=== PATIENT | male | born 1965 | race African-American/Black ===

== ENCOUNTER → 2018-04-27 | Outpatient (CLI) | payer OTHER ==
--- NOTE | 2018-04-27 12:04 | RAD ---
Lumbar spine, 3 views, 04/27/2018: HISTORY: Low back pain from old injury, left-sided numbness, right-sided pain The lumbar vertebral heights are well-maintained. The intervertebral disc spaces are well preserved. There are mild scattered marginal spurs. There are mild degenerative changes involving facet joints in the lower lumbar spine. No fracture or dislocation is evident. Moderate aortoiliac calcific plaquing is noted. IMPRESSION: 1. Mild scattered degenerative changes. 2. No acute bony abnormality is detected. Electronically signed by: Garcia Trejo MD (04/27/2018 12:01 PM) [facility]
--- NOTE | 2018-04-27 12:06 | RAD ---
Cervical spine, 3 views, 04/27/2018: HISTORY: Neck pain There are mild spurs at several levels in the mid and lower cervical spine. The vertebral heights and intervertebral disc spaces are well-maintained. No fracture or dislocation is identified. The prevertebral soft tissues are unremarkable. IMPRESSION: 1. Mild marginal spurring. 2. No acute abnormality is detected. Electronically signed by: Garcia Trejo MD (04/27/2018 12:02 PM) [facility]
== END | disposition home or self-care (01) ==
LOC: RAD 09:03
PROVIDERS: ATTEND Internal Medicine Infectious Disease
DX: M47.896 Other spondylosis, lumbar region (principal); M46.02 Spinal enthesopathy, cervical region
CPT/HCPCS: 72040; 72100